=== PATIENT | female | born 1995 | race Caucasian/White ===

== ENCOUNTER 2025-04-08 12:02 | Emergency (ER) | payer BC, SELFPAY ==
[2025-04-08 12:11] VITALS: BP 148/110; PULSE 84; RESP 18; TEMP 36.9; O2SAT 100; BMI 32.9
--- NOTE | 2025-04-08 12:11 | ECG_ITS ---
APPROVED REPORT Exam: Resting ECG HR:108 bpm ECG Measurements Heart Rate 108 AXES HI 136 P 60 QRSd 79 QRS 54 QT 314 T 62 QTc 378 Conclusion SINUS TACHYCARDIA ABNORMAL RHYTHM ECG UNCONFIRMED REPORT Electronically signed by : EDMOND CARL, 04/09/2025 06:50:54
[2025-04-08 12:27] LABS: Basophils % 0.3 % (0.1-2.0); Eosinophils # 0.2 Kmm3 (0.0-0.4); Eosinophils % 1.4 % (0.1-12.0); Hemoglobin 12.6 g/dL (12.2-16.2); Immature Granulocytes # 0.03 10^3uL; Immature Granulocytes % 0.3 %; Lymphocytes # 2.5 K/mm3 (0.7-4.5); Lymphocytes % 22.4 % (10-50); Mean Corpuscular HGB Conc 33.2 g/dL (31.8-35.4); Mean Corpuscular Volume 81.4 fl (81-99); Mean Platelet Volume 9.3 fl (7.4-10.4); Monocytes # 0.8 K/mm3 (0.1-1.0); Monocytes % 7.3 % (1.7-9.3); Neutrophils # 7.5 K/mm3 (1.8-7.8); Neutrophils % 68.3 % (37.0-80.0); Nucleated Red Blood Cells # 0 10^3/uL; Nucleated Red Blood Cells % 0 %; Platelet Count 526 K/mm3 (142-424); Red Blood Count 4.67 M/mm3 (4.20-5.40); Red Cell Distribution Width 13.5 % (11.5-17.5); Red Cell Distribution Width-SD 39.8 fL
--- NOTE | 2025-04-08 12:31 | [facility].EDGENADL ---
Discharge Plan Disposition Patient Disposition: Home, Self-Care Condition: Good Referrals Follow up/Referrals: Provider,Referral, MD [Primary Care Provider, Medical] - See instructions Activity Restrictions/Add. Instructions Additional Instructions/Restrictions: Please return to the emergency department with any worsening signs or symptoms, please follow-up with your family doctor regarding family history of cardiac disease, could benefit from full cholesterol panel/normal routine blood work. If your symptoms persist, any worsening chest pain shortness of breath heart palpitations please return to the emergency department. Could also pursue outpatient Holter monitoring/cardiac monitoring if you have frequent palpitations in the future. Clinical Impressions Clinical Impression: Palpitations Instructions Patient Instructions: DI for Palpitations Print Language Print Language: Maltese Discharge ED Provider: Chris Weiss General Adult HPI <REGAN Lorenz - Last Filed: 04/08/25 13:16> General Chief complaint: Arrhythmia/Palpitations Stated complaint: heart palpitations, stiffness L arm Time Seen by Provider: 04/08/25 12:08 Mode of Arrival: Ambulatory Source of Information: Patient Description of Symptoms (Recalled from ER Triage Doc. by RN): Patient states about 1130 this morning she had a squeezing and fluttering in her chest that last about 3-5 minutes and her left arm felt funny Patient states she was told by her boss that she had to come to the ER to be checked out. Patient denies any previous similar episodes. Patient states she does drink caffeine. History of Present Illness HPI narrative: 29-year-old female presents the emergency department for episode of heart palpitations squeezing , and numbness and tingling as well as a uncomfortable feeling , down her left arm that occurred around 11:30 AM this morning while she was at work, she was not exerting herself, she does endorse recent life stressors, endorses caffeine intake, patient denies any fever chills cough congestion, denies any chest pain or shortness of breath currently, did have shortness of breath with this initial episode, patient Nuys any neck pain, denies any numbness or tingling currently, denies any upper or lower extremity weakness, denies any neck pain, denies any abdominal pain nausea vomiting constipation diarrhea no urinary type symptomatology, no vaginal type symptomatology, patient has no real relevant past medical history, takes no other medications at home, denies any alcohol tobacco or drug use, initial triage vitals are unremarkable. She presents to the emergency department today with request of her boss , who suggested she go get checked out . Also of note, data deficient history of some type of heart disease in her family, she is unsure. Onset (ago): hour(s) Related Data Allergies Allergy/AdvReac Type Severity Reaction Status Date / Time No Known Allergies Allergy Verified 04/08/25 12:16 COUNTS INCLUDE 234 BEDS AT THE [facility] <REGAN Lorenz - Last Filed: 04/08/25 13:16> COUNTS INCLUDE 234 BEDS AT THE [facility] Disclaimer: The information contained in this section may have been updated after the patient was seen, as this information can be updated by other users. Social History (Updated 04/08/25 @ 13:16 by REGAN Lorenz) Smoking Status: Never smoker alcohol intake: never current occupational status: other Travel in the last 8 weeks?: None Have you lived/traveled outside [place] in past 30 days?: No Contact w/someone who lives/traveled outside [place] past 30 days?: No Exposure to someone with infectious disease in past 14 days?: No Do you have a fever (greater than 100.4 F or 38 C)?: No Have you tested positive for COVID-19?: No Exposed to someone with COVID-19 in past 14 days?: No Do you have a sore throat?: No Do you have a cough?: No Do you have any weakness?: No Do you have any diarrhea?: No Are you experiencing any unusual bleeding?: No Do you have any muscle aches/pain?: No Do you have any abdominal pain?: No Are you experiencing loss of taste or smell?: No Other Medical History Have you received the Flu Vaccine for this season: No Have you received the Pneumonia Vaccine: No <REGAN Lorenz - Last Filed: 04/08/25 13:16> ROS Obtained: Yes All systems reviewed & no additional complaints except as documented Physical Exam <REGAN Lorenz - Last Filed: 04/08/25 13:16> General General appearance: alert and in no apparent distress Head Head exam: atraumatic and normocephalic Eye Eye exam: Present PERRL and EOMI ENT ENT exam: Present mucous membranes moist Neck Neck exam: Present normal inspection Chest Chest inspection: Present normal inspection and symmetric chest wall rise Respiratory Respiratory exam: Present normal lung sounds bilaterally; Absent respiratory distress Cardiovascular Cardiovascular exam: Present regular rate and normal rhythm Abdominal Exam Abdominal exam: Present soft; Absent tenderness, guarding, rebound or rigidity Extremities Exam Extremities exam: Present normal inspection Neurological Exam Neurological exam: Present alert and oriented X3 Psychiatric Psychiatric exam: Present normal affect Skin Skin exam: Present warm and dry Medical Decision Making <REGAN Lorenz - Last Filed: 04/08/25 13:16> Medical Records Medical records reviewed: Yes I reviewed the patient's medical records. Screening: Per USPSTF and CDC recommendations, given the prevalence of disease in our region, it is our hospital?s policy to screen for HIV and viral Hepatitis for all patients aged 18 and over and those with ongoing risk factors. Erik Inquiry Pt receiving controlled substance: No Erik was queried for this patient: No Vital Signs: 04/08/25 12:11 04/08/25 12:33 04/08/25 13:00 Temperature 98.5 F Temperature Source Oral Pulse Rate 75 73 Pulse Rate [Right Radial] 84 Respiratory Rate 18 17 23 Blood Pressure 114/76 115/76 Blood Pressure [Right Arm] 148/110 H Blood Pressure Mean 94 Blood Pressure Mean [Right Arm] 122 Blood Pressure Source [Right Arm] Automatic Cuff Blood Pressure Position [Right Arm] Sitting 02 Sat by Pulse Oximetry 100 100 100 Oxygen Delivery Method Room Air 04/08/25 13:19 Temperature 98.0 F Temperature Source Pulse Rate 73 Pulse Rate [Right Radial] Respiratory Rate 23 Blood Pressure 115/76 Blood Pressure [Right Arm] Blood Pressure Mean Blood Pressure Mean [Right Arm] Blood Pressure Source [Right Arm] Blood Pressure Position [Right Arm] 02 Sat by Pulse Oximetry Oxygen Delivery Method Lab Data Lab results reviewed: Yes I reviewed the patient's lab results. Lab Results 04/08/25 12:15: WBC 11.0 H, RBC 4.67, Hgb 12.6, Hct 38.0, MCV 81.4, MCH 27.0, MCHC 33.2, RDW 13.5, Plt Count 526 H, MPV 9.3, Neut % (Auto) 68.3, Lymph % (Auto) 22.4, [place] % (Auto) 7.3, Eos % (Auto) 1.4, Baso % (Auto) 0.3, Neut # (Auto) 7.5, Lymph # (Auto) 2.5, [place] # (Auto) 0.8, Eos # (Auto) 0.2, Baso # (Auto) 0.0, D-Dimer 0.42, Sodium 135 L, Potassium 4.1, Chloride 103, Carbon Dioxide 25, Anion Gap 11.1, BUN 13, Creatinine 0.60, Estimated Creat Clear 198, Estimated GFR 119, Est GFR ( Amer) 144, Glucose 93, Calcium 9.4, Total Bilirubin 0.6, AST 26, ALT 16, Alkaline Phosphatase 94, Troponin I < 0.01, NT-Pro-B Natriuret Pep < 20.0, Total Protein 8.9 H, Albumin 4.7, Globulin 4.2 H, Albumin/Globulin Ratio 1.1, Serum HCG, Qual Negative 04/08/25 12:15 04/08/25 12:15 Orders (Tests/Meds): ORDERS Category Date Time Status Complete Blood Count Auto Diff Stat Lab 04/08/25 12:15 Completed Comprehensive Metabolic Panel Stat Lab 04/08/25 12:15 Completed D-Dimer Stat Lab 04/08/25 12:15 Completed HCG Qualitative, Serum Stat Lab 04/08/25 12:15 Completed NT Pro Brain Natriuretic Pep. Stat Lab 04/08/25 12:15 Completed Troponin I Stat Lab 04/08/25 12:15 Completed Medical Decision Narrative: 29-year-old female presents the emergency department with chest tightness heart palpitations, and symptomatology rating down the left arm, shortness of breath, differential diagnosis could be not limited, cardiac arrhythmia, electrolyte disturbance, panic attack, generalized anxiety disorder, ACS, PE, among others. I discussed patient case with attending physician Dr. Weiss Will obtain basic laboratory studies, D-dimer, proBNP, troponin, EKG, hCG qualitative. CBC is notable for minimal leukocytosis at 11, thrombocytosis 526 hCG serum qualitative is negative CMP unremarkable. Troponin within normal limits, proBNP within normal limited D-dimer is less than 0.42, thus ruling out VTE/PE, I discussed the results with the patient at the bedside, patient was able to talk to family member, regarding family history of heart issue , patient's aunts, has high cholesterol and takes medication for this, recommend follow-up with PCP to have full cholesterol/triglyceride panel ran, negative troponin negative proBNP, patient has remained hemodynamically stable throughout her time in the emergency department, no acute symptomatology at this time, could have been more of sympathetic response/panic attack versus anxiety type reaction, did discuss that EKG here, as well as monitoring revealed normal sinus rhythm, if patient ever has any other palpitations, any other symptomatology, could pursue outpatient Holter monitoring/cardiac monitoring via PCP, patient voiced understanding and agreement with current treatment plan/discharge plan, strict ED return precautions were given. <Chris Weiss MD - Last Filed: 04/08/25 13:58> Vital Signs: 04/08/25 12:11 04/08/25 12:33 04/08/25 13:00 Temperature 98.5 F Temperature Source Oral Pulse Rate 75 73 Pulse Rate [Right Radial] 84 Respiratory Rate 18 17 23 Blood Pressure 114/76 115/76 Blood Pressure [Right Arm] 148/110 H Blood Pressure Mean 94 Blood Pressure Mean [Right Arm] 122 Blood Pressure Source [Right Arm] Automatic Cuff Blood Pressure Position [Right Arm] Sitting 02 Sat by Pulse Oximetry 100 100 100 Oxygen Delivery Method Room Air 04/08/25 13:19 Temperature 98.0 F Temperature Source Pulse Rate 73 Pulse Rate [Right Radial] Respiratory Rate 23 Blood Pressure 115/76 Blood Pressure [Right Arm] Blood Pressure Mean Blood Pressure Mean [Right Arm] Blood Pressure Source [Right Arm] Blood Pressure Position [Right Arm] 02 Sat by Pulse Oximetry Oxygen Delivery Method Lab Data Lab Results 04/08/25 12:15: WBC 11.0 H, RBC 4.67, Hgb 12.6, Hct 38.0, MCV 81.4, MCH 27.0, MCHC 33.2, RDW 13.5, Plt Count 526 H, MPV 9.3, Neut % (Auto) 68.3, Lymph % (Auto) 22.4, [place] % (Auto) 7.3, Eos % (Auto) 1.4, Baso % (Auto) 0.3, Neut # (Auto) 7.5, Lymph # (Auto) 2.5, [place] # (Auto) 0.8, Eos # (Auto) 0.2, Baso # (Auto) 0.0, D-Dimer 0.42, Sodium 135 L, Potassium 4.1, Chloride 103, Carbon Dioxide 25, Anion Gap 11.1, BUN 13, Creatinine 0.60, Estimated Creat Clear 198, Estimated GFR 119, Est GFR ( Amer) 144, Glucose 93, Calcium 9.4, Total Bilirubin 0.6, AST 26, ALT 16, Alkaline Phosphatase 94, Troponin I < 0.01, NT-Pro-B Natriuret Pep < 20.0, Total Protein 8.9 H, Albumin 4.7, Globulin 4.2 H, Albumin/Globulin Ratio 1.1, Serum HCG, Qual Negative Orders (Tests/Meds): ORDERS Category Date Time Status Complete Blood Count Auto Diff Stat Lab 04/08/25 12:15 Completed Comprehensive Metabolic Panel Stat Lab 04/08/25 12:15 Completed D-Dimer Stat Lab 04/08/25 12:15 Completed HCG Qualitative, Serum Stat Lab 04/08/25 12:15 Completed NT Pro Brain Natriuretic Pep. Stat Lab 04/08/25 12:15 Completed Troponin I Stat Lab 04/08/25 12:15 Completed Medical Decision Narrative: 29-year-old female presents the emergency department with chest tightness heart palpitations, and symptomatology rating down the left arm, shortness of breath, differential diagnosis could be not limited, cardiac arrhythmia, electrolyte disturbance, panic attack, generalized anxiety disorder, ACS, PE, among others. I discussed patient case with attending physician Dr. Weiss Will obtain basic laboratory studies, D-dimer, proBNP, troponin, EKG, hCG qualitative. CBC is notable for minimal leukocytosis at 11, thrombocytosis 526 hCG serum qualitative is negative CMP unremarkable. Troponin within normal limits, proBNP within normal limited D-dimer is less than 0.42, thus ruling out VTE/PE, I discussed the results with the patient at the bedside, patient was able to talk to family member, regarding family history of heart issue , patient's aunts, has high cholesterol and takes medication for this, recommend follow-up with PCP to have full cholesterol/triglyceride panel ran, negative troponin negative proBNP, patient has remained hemodynamically stable throughout her time in the emergency department, no acute symptomatology at this time, could have been more of sympathetic response/panic attack versus anxiety type reaction, did discuss that EKG here, as well as monitoring revealed normal sinus rhythm, if patient ever has any other palpitations, any other symptomatology, could pursue outpatient Holter monitoring/cardiac monitoring via PCP, patient voiced understanding and agreement with current treatment plan/discharge plan, strict ED return precautions were given. I was consulted by the CECILIA, and we discussed the complexity of the problems being addressed. I approved the treatment and management plan for this patient's care in the Emergency Department, thus performing a substantive portion of the medical decision making. Independent interpretation of EKG with ventricular rate 108, NV 136, QRS 79, QTc 378. No acute ischemic change and normal axis. Chris Weiss MD Critical Care <REGAN Lorenz - Last Filed: 04/08/25 13:16> Critical Care Time Critical Care Time: No
[2025-04-08 12:33] VITALS: BP 114/76; PULSE 75; RESP 17; O2SAT 100
[2025-04-08 12:34] LABS: HCG Qualitative, Serum Negative (Negative)
[2025-04-08 12:35] LABS: Alanine Aminotransferase 16 U/L (12-78); Albumin Level 4.7 g/dl (3.5-5.0); Albumin/Globulin Ratio 1.1 (1.1-1.8); Alkaline Phosphatase 94 U/L (38-126); Anion Gap 11.1 mEq/L (5-15); Aspartate Amino Transferase 26 U/L (14-36); Bilirubin,Total 0.6 mg/dl (0.2-1.3); Blood Urea Nitrogen 13 mg/dl (7-17); Calcium 9.4 mg/dl (8.4-10.2); Carbon Dioxide 25 mmol/L (22.0-30.0); Chloride 103 mmol/L (98-107); Creatinine Clearance Estimated 198 mL/min (50-200); Estimated Glomerular Filt Rate 119 ml/min (>60); GFR (African American) 144 ML/MIN (>60); Globulin 4.2 g/dL (1.3-3.2); Glucose 93 mg/dl (74-100); Potassium 4.1 mmoL/L (3.5-5.1); Sodium 135 mmol/L (136-145); Total Protein,Serum 8.9 g/dl (6.3-8.2)
[2025-04-08 12:47] LABS: NT Pro Brain Natriuretic Pep. < 20.0 pg/mL (0-125); Troponin I < 0.01 ng/ml (0.00-0.034)
[2025-04-08 12:56] LABS: D-Dimer 0.42 ug/mL (0.0-0.5)
[2025-04-08 13:00] VITALS: BP 115/76; PULSE 73; RESP 23; O2SAT 100
[2025-04-08 13:19] VITALS: BP 115/76; PULSE 73; RESP 23; TEMP 36.7; O2SAT 99
== END 2025-04-08 13:23 | disposition home or self-care (01) ==
PROVIDERS: Physician Assistant; Emergency Provider Emergency Medicine
DX: R00.2 Palpitations (principal)
CPT/HCPCS: 80053; 83880; 84484; 84703; 85025; 85378; 93005; 99283